=== PATIENT | male | born 1970 | race Two or more races ===

== ENCOUNTER 2019-12-12 10:41 | Outpatient (CLI) | payer OTHER | END 2019-12-12 11:20 | disposition home or self-care (01) | LOC: OFIC 805 10:41 | PROVIDERS: ATTEND Otolaryngology | DX: K14.8 Other diseases of tongue (principal) ==

== ENCOUNTER 2019-12-30 05:20 | Day surgery (SDC) | payer OTHER ==
[~2019-12-30 05:20] MED LIST: TENORMIN25 MG PO
== END 2019-12-30 11:20 | disposition home or self-care (01) ==
LOC: CIR.AMB 05:20
PROVIDERS: ATTEND Otolaryngology
DX: D10.1 Benign neoplasm of tongue (principal); Z20.828 Contact with and (suspected) exposure to other viral communicable diseases

== ENCOUNTER → 2020-02-12 | Outpatient (CLI) | payer OTHER | END | disposition home or self-care (01) | LOC: OFIC 805 02-10 10:00 | PROVIDERS: ATTEND Otolaryngology | DX: K14.8 Other diseases of tongue (principal); K13.0 Diseases of lips ==

== ENCOUNTER 2020-08-13 10:38 | Outpatient (CLI) | payer OTHER | END 2020-08-13 13:39 | disposition home or self-care (01) | LOC: OFIC 805 10:38 | PROVIDERS: ATTEND Otolaryngology | DX: S09.8XXA Other specified injuries of head, initial encounter (principal); K13.0 Diseases of lips ==